=== PATIENT | male | born 1995 | race African-American/Black ===

== ENCOUNTER 2022-11-30 19:46 | Emergency (ER) | payer OTHER ==
[~2022-11-30] VITALS: Ht 188 cm; Wt 97.7 kg
[2022-11-30] MEDS ORDERED: RABIES VACCINE, HUMAN DIPLOID/PF 2.5 UNITS/ML VIAL IM. ONE (20:45)
[2022-11-30] MEDS ORDERED: IBUPROFEN 600 MG TABLET PO ONE (20:45)
[2022-11-30] MEDS ORDERED: RABIES IMMUNE GLOBULIN/PF 300 UNITS/ML 5 ML VIAL IM. ONE (20:45)
[2022-11-30] MEDS ORDERED: PERTUSS(ACELL),DIPH,TET VAC/PF 0.5 ML SYRINGE IM. ONE (20:45)
[2022-11-30] MEDS ORDERED: ACETAMINOPHEN 500 MG TABLET PO ONE (20:45)
[2022-11-30] MEDS ORDERED: AMOX TR/POT CLAV 875 MG/125 MG TABLET PO ONE (20:45)
[2022-11-30 21:49] VITALS: BP 129/86
[2022-11-30] MEDS ORDERED: AMOX1TAB16 PO (21:51)
== END 2022-11-30 22:05 | disposition home or self-care (01) ==
LOC: EMS 19:47
DX: S61.452A Open bite of left hand, initial encounter (principal); W54.0XXA Bitten by dog, initial encounter; Y93.89 Activity, other specified; Y92.512 Supermarket, store or market as the place of occurrence of the external cause; Y99.8 Other external cause status
CPT/HCPCS: 90375; 90471; 90472; 90675; 90715; 99284